=== PATIENT | male | born 1965 | race Caucasian/White ===

== ENCOUNTER 2020-12-21 12:55 | Observation (INO) | payer BC ==
[2020-12-21] MEDS ORDERED: Sodium Chloride 0.9% 1000 ML 1,000 ML IV STA (13:23)
[2020-12-21] MEDS ORDERED: Sodium Chloride 0.9% 1000 ML 1,000 ML ONE (13:47)
--- NOTE | 2020-12-21 14:12 | ERPHSYRPT ---
- History of Present Illness Time Seen by Provider: 12/21/20 14:09 Source: family, EMS Exam Limitations: no limitations Patient Subjective Stated Complaint: EMS states "His girlfriend found him with a bunch of pill bottles, but he cannot remember what he took or how much. He knows his name but that is about it.". pt states "I don't know what is going on. I do not know what I took , I do not know where I am." Triage Nursing Assessment: Pt presented alert and confused. Pt knows his name but not where he is. PT can answer some questions but not other. Pt gets irritated when asked multiple questions. PT has intermittant cough. Physician History: EMS states "His girlfriend found him with a bunch of pill bottles, but he cannot remember what he took or how much. He knows his name but that is about it." pt states "I don't know what is going on. I do not know what I took , I do not know where I am."Patient is extremely drowsy and unable to answer the question Timing/Duration: today Allergies/Adverse Reactions: Penicillins Allergy (Unknown, Verified 12/21/20 13:08) tetracycline Allergy (Unknown, Verified 12/21/20 13:08) Home Medications: Lisinopril 40 mg PO DAILY 12/21/20 [History] Metoprolol Tartrate 25 mg PO BID 12/21/20 [History] Rosuvastatin Calcium [Crestor] 5 mg PO DAILY 12/21/20 [History] Trazodone HCl 100 mg PO DAILY 12/21/20 [History] Hx Tetanus, Diphtheria Vaccination/Date Given: (unknown) Hx Influenza Vaccination/Date Given: (unknown) Hx Pneumococcal Vaccination/Date Given: (unknown) Immunizations Up to Date: (unknown) Travel Risk - International Travel Have you traveled outside of the country in past 3 weeks: No - Coronavirus Screening Are you exhibiting any of the following symptoms?: No Close contact with a COVID-19 positive Pt in past 14-21 Days: No - Vaccine Status Have you recieved a Covid-19 vaccination: Yes Evidence Custodian: Amind - Review of Systems Constitutional: Lethargy Neurological: Lethargy All Other Systems: Unable due to condition - Past Medical History Pertinent Past Medical History: Yes Neurological History: No Pertinent History ENT History: No Pertinent History Cardiac History: High Cholesterol, Hypertension Respiratory History: No Pertinent History Endocrine Medical History: No Pertinent History Musculoskeletal History: No Pertinent History GI Medical History: No Pertinent History History: No Pertinent History Psycho-Social History: Depression Male Reproductive Disorders: No Pertinent History - Past Surgical History Past Surgical History: Yes Other Surgical History: hernia. appi. benigno - Social History Smoking Status: Former smoker Exposure to second hand smoke: Yes Drug Use: none Patient Lives Alone: No - Nursing Vital Signs Nursing Vital Signs: Initial Vital Signs Temperature 97.4 F 12/21/20 12:57 Pulse Rate 87 12/21/20 12:57 Respiratory Rate 20 12/21/20 12:57 Blood Pressure 150/95 12/21/20 12:57 O2 Sat by Pulse Oximetry 96 12/21/20 12:57 Pain Scale Pain Intensity 0 - Physical Exam General Appearance: mild distress Eye Exam: PERRL/EOMI Ears, Nose, Throat Exam: normal ENT inspection Neck Exam: normal inspection Respiratory Exam: normal breath sounds Cardiovascular Exam: regular rate/rhythm Gastrointestinal/Abdomen Exam: soft, normal bowel sounds Back Exam: normal inspection Extremity Exam: normal inspection Neurologic Exam: sensation nml, disoriented, No motor deficits, No intoxicated appearance, No motor weakness, No facial droop SpO2: 96 - Course Nursing assessment & vital signs reviewed: Yes EKG Interpreted by Me: Sinus Rhythm, Non-specific ST Changes Rhythm Strip: Normal Sinus Rhythm - Radiology Exams Chest X-ray Interpretation: Reviewed by me, Negative - CT Exams Head CT Interpretation: Tele-radiologist Report Ordered Tests: Active Orders 24 hr Category Date Time Status EKG-ER Only STAT Care 12/21/20 13:39 Active CHEST 2 VIEWS (PA AND LAT) Stat Exams 12/21/20 14:51 Ordered HEAD WITHOUT CONTRAST [CT] Stat Exams 12/21/20 13:24 Taken ACETAMINOPHEN Stat Lab 12/21/20 13:45 Completed CBC W DIFF Stat Lab 12/21/20 13:45 Completed CMP Stat Lab 12/21/20 13:45 Completed ETHYL ALCOHOL Stat Lab 12/21/20 13:45 Completed SALICYLATE Stat Lab 12/21/20 13:45 Completed TROPONIN Stat Lab 12/21/20 14:12 Completed Urine Triage Profile Stat Lab 12/21/20 14:16 Ordered Medication Summary Discontinued Medications Generic Name Dose Route Start Last Admin Trade Name Freq PRN Reason Stop Dose Admin Sodium Chloride 1,000 mls @ 999 mls/hr 12/21/20 13:23 12/21/20 13:48 Sodium Chloride 0.9% 1000 Ml IV 12/21/20 14:23 999 mls/hr .Q1H1M STA Administration Sodium Chloride Confirm 12/21/20 13:47 Sodium Chloride 0.9% 1000 Ml Administered 12/21/20 13:48 Dose 1,000 mls @ ud .ROUTE .K-MED ONE Lab/Rad Data: Laboratory Result Diagrams 12/21/20 13:45 12/21/20 13:45 Laboratory Results 12/21/20 12/21/20 12/21/20 Range/Units 14:12 13:45 13:45 WBC 9.1 (4.0-10.5) K/mm3 RBC 5.26 (4.1-5.6) M/mm3 Hgb 15.5 (12.5-18.0) gm/dl Hct 47.5 (42-50) % MCV 90.3 (78-100) fl MCH 29.5 (26-32) pg MCHC 32.6 (32-36) g/dl RDW 15.0 H (11.5-14.0) % Plt Count 81 L (150-450) K/mm3 MPV 9.9 (7.5-11.0) fl Gran % 77.7 H (36.0-66.0) % Eos # (Auto) 0.11 (0-0.5) Absolute Lymphs (auto) 1.14 (1.0-4.6) Absolute Monos (auto) 0.73 (0.0-1.3) Lymphocytes % 12.5 L (24.0-44.0) % Monocytes % 8.0 (0.0-12.0) % Eosinophils % 1.2 (0.00-5.0) % Basophils % 0.6 (0.0-0.4) % Absolute Granulocytes 7.06 H (1.4-6.9) Basophils # 0.05 (0-0.4) Sodium 141 (137-145) mmol/L Potassium 4.6 (3.5-5.1) mmol/L Chloride 105 (98-107) mmol/L Carbon Dioxide 29 (22-30) mmol/L Anion Gap 12.4 (5-15) MEQ/L BUN 10 (9-20) mg/dL Creatinine 1.00 (0.66-1.25) mg/dL Estimated GFR > 60.0 ML/MIN Glucose 104 (74-106) mg/dL Calcium 9.6 (8.4-10.2) mg/dL Total Bilirubin 0.80 (0.2-1.3) mg/dL AST 25 (17-59) U/L ALT 17 (0-50) U/L Alkaline Phosphatase 124 (38-126) U/L Troponin I 0.067 H* (0.000-0.034) ng/mL Serum Total Protein 7.2 (6.3-8.2) g/dL Albumin 4.4 (3.5-5.0) g/dL Salicylates < 1.0 L (2-20) mg/dL Acetaminophen < 10 L (10-30) ug/ml Ethyl Alcohol < 10 (0-10) mg/dL Slides for Path Review YES - Progress Progress: unchanged Discussed with Dr.: Ira Marc Will see patient in: hospital (observation) Counseled pt/family regarding: lab results, diagnosis, need for follow-up, rad results - Departure Departure Disposition: Observation Clinical Impression: Elevated troponin I level, Unresponsive episode Condition: Fair Critical Care Time: Yes Critical Care Time(excluding separately billable procedures): Critical 30-74 min s Referrals: DOCTOR,NO FAMILY [Primary Care Provider] -
[2020-12-21 14:13] LABS: Absolute Neutrophil Ct (ANC) 7.06 (1.4-6.9); BASOPHIL % 0.6 % (0.0-0.4); Basophil (Absolute #) 0.05 (0-0.4); Eosinophil % 1.2 % (0.00-5.0); Eosinophil (Absolute #) 0.11 (0-0.5); Hematocrit 47.5 % (42-50); Hemoglobin 15.5 gm/dl (12.5-18.0); Lymphocyte (Absolute #) 1.14 (1.0-4.6); Lymphocytes % 12.5 % (24.0-44.0); Mean Cell Volume 90.3 fl (78-100); Mean Corpuscular Hemoglobin 29.5 pg (26-32); Mean Corpuscular Hgb Concent. 32.6 g/dl (32-36); Mean Platelet Volume 9.9 fl (7.5-11.0); Monocyte (Absolute #) 0.73 (0.0-1.3); Neutrophil % 77.7 % (36.0-66.0); Platelet Count 81 K/mm3 (150-450); Red Blood Count 5.26 M/mm3 (4.1-5.6); White Blood Count 9.1 K/mm3 (4.0-10.5)
[2020-12-21 14:24] LABS: ACETAMINOPHEN < 10 ug/ml (10-30); ALBUMIN 4.4 g/dL (3.5-5.0); ALKALINE PHOSPHATASE 124 U/L (38-126); ANION GAP 12.4 MEQ/L (5-15); BLOOD UREA NITROGEN 10 mg/dL (9-20); CHLORIDE 105 mmol/L (98-107); Calcium 9.6 mg/dL (8.4-10.2); Carbon Dioxide 29 mmol/L (22-30); EST GLOMERULAR FILTRATION RATE > 60.0 ML/MIN; ETHYL ALCOHOL < 10 mg/dL (0-10); Glucose 104 mg/dL (74-106); Potassium 4.6 mmol/L (3.5-5.1); SALICYLATE < 1.0 mg/dL (2-20); SGOT/AST 25 U/L (17-59); SGPT/ALT 17 U/L (0-50); SODIUM 141 mmol/L (137-145); Total Protein 7.2 g/dL (6.3-8.2)
[2020-12-21 14:45] LABS: Slide Review 1 YES
[2020-12-21 15:18] LABS: Amphetamine,Urine NEGATIVE (NEGATIVE); Barbiturate,Urine NEGATIVE (NEGATIVE); Benzodiazepine,Urine NEGATIVE (NEGATIVE); Cocaine,Urine NEGATIVE (NEGATIVE); Methadone,Urine NEGATIVE (NEGATIVE); Opiate,Urine NEGATIVE (NEGATIVE); PCP,Urine NEGATIVE (NEGATIVE); THC,Urine NEGATIVE (NEGATIVE)
[2020-12-21] MEDS ORDERED: Senokot-S Tablet PO PRN (17:35)
[2020-12-21] MEDS ORDERED: TYLENOL 325 MG PO PRN (17:35)
[2020-12-21] MEDS ORDERED: MILK OF MAGNESIA 30 ML PO PRN (17:35)
[2020-12-21] MEDS ORDERED: MAALOX ES 30 ML UNIT DOSE PO PRN (17:35)
[2020-12-21] MEDS ORDERED: Zofran 4 MG/2 ML VIAL IV PRN (17:35)
[2020-12-21] MEDS ORDERED: Sodium Chloride 0.9% 500 ML 500 ML IV SCH (17:45)
--- NOTE | 2020-12-21 20:32 | XRAY ---
Indication: Found unresponsive. Comparison: None AP/lateral chest inflated and clear. Heart not enlarged with CABG surgery. Bony thorax intact with sternotomy wires. Impression: Nonacute chest.
--- NOTE | 2020-12-21 20:34 | XRAY ---
Indication: Found unresponsive. Multiple contiguous axial images obtained through the head without contrast. Comparison: None Normal appearing brain parenchyma, ventricles, and bony calvarium for patient's age. Complete opacification right maxillary and right sphenoid sinuses with minimal mucosal thickening of both ethmoid sinuses. Mastoid air cells are clear. Impression: Pansinusitis. Remaining CT head without contrast exam is negative. Comment: Preliminary interpretation made by [facility]. No critical discrepancy.
[2020-12-22] MEDS ORDERED: ENOXAPARIN SODIUM SQ ONE
[2020-12-22] MEDS ORDERED: Toprol Xl 50 MG PO ONE
[2020-12-22 06:35] LABS: BASOPHIL % 0.5 % (0.0-0.4); Basophil (Absolute #) 0.03 (0-0.4); Eosinophil % 3.2 % (0.00-5.0); Hematocrit 44.1 % (42-50); Hemoglobin 14.4 gm/dl (12.5-18.0); Lymphocyte (Absolute #) 1.49 (1.0-4.6); Lymphocytes % 23.9 % (24.0-44.0); Mean Cell Volume 90.4 fl (78-100); Mean Corpuscular Hemoglobin 29.5 pg (26-32); Mean Corpuscular Hgb Concent. 32.7 g/dl (32-36); Monocyte (Absolute #) 0.61 (0.0-1.3); Monocytes % 9.8 % (0.0-12.0); Neutrophil % 62.6 % (36.0-66.0); Platelet Count 75 K/mm3 (150-450); Red Blood Count 4.88 M/mm3 (4.1-5.6); White Blood Count 6.2 K/mm3 (4.0-10.5)
[2020-12-22 07:03] LABS: ANION GAP 9.7 MEQ/L (5-15); BLOOD UREA NITROGEN 11 mg/dL (9-20); CHLORIDE 108 mmol/L (98-107); Calcium 8.8 mg/dL (8.4-10.2); Carbon Dioxide 24 mmol/L (22-30); Cholesterol 186 mg/dL (50-200); Creatinine 1 0.83 mg/dL (0.66-1.25); EST GLOMERULAR FILTRATION RATE > 60.0 ML/MIN; Glucose 95 mg/dL (74-106); HDL CHOLESTEROL 30 mg/dL (40-60); LDL, DIRECT 120 mg/dL (30-100); Potassium 3.9 mmol/L (3.5-5.1); Risk Ratio 6.1; SODIUM 138 mmol/L (137-145); TRIGLYCERIDE 240 mg/dL (30-150)
[2020-12-22 07:28] LABS: Slide Review 1 YES
[2020-12-22 08:40] VITALS: O2SAT 97
[2020-12-22 13:52] VITALS: BP 142/72; PULSE 68
--- NOTE | 2020-12-22 17:49 | XRAY ---
Indication: Stroke symptoms. Multiple contiguous axial images obtained through the head without contrast. Comparison: One day earlier. Normal appearing brain parenchyma, ventricles, and bony calvarium for patient's age. Continued complete opacification right maxillary and right sphenoid sinuses with mild mucosal thickening both ethmoid sinuses. Mastoid air cells remain clear. Impression: 1. Continued negative CT head without contrast exam. 2. Again incidental pansinusitis. 3. MRI may yield further information if there remains clinical concern. Comment: Preliminary interpretation made by [facility]. No critical discrepancy
--- NOTE | 2020-12-22 17:56 | XRAY ---
Indication: Stroke symptoms. Conventional contrast enhanced CTA neck performed using 100 cc Isovue 370 contrast. Two-dimensional sagittal and coronal reformatted images obtained. Additional 3-dimensional reformatted images obtained using a separate workstation. Comparison: None. Aortic arch demonstrates minimal arteriosclerotic calcifications without aneurysm/dissection. Normal branching right brachiocephalic, left common carotid, and left subclavian arteries with very minimal calcifications at their origins. Examination of the right carotid circulation demonstrates widely patent common carotid artery. At the level of the bulb, there is very minimal arteriosclerotic calcifications slightly extending into the origin of the internal carotid artery without critical stenosis/obstruction. Remaining external carotid and distal internal carotid arteries are normal in CTA appearance. Examination of the left carotid circulation demonstrates widely patent common carotid artery. Very minimal arteriosclerotic calcifications seen at the level of the bulb slightly extending into the origin of the internal carotid artery without critical stenosis/obstruction. Remaining external carotid artery normal in CTA appearance. Vertebral arteries are bilaterally normal in CTA appearance with the left slightly larger in caliber. Visualized noncontrasted soft tissues demonstrates a few subcentimeter cervical and submandibular lymph nodes bilaterally. No pathologic lymphadenopathy. Parotid and submandibular glands are bilaterally symmetric. Supra and infraglottic airway widely patent. Patient is edentulous. Cervical spine intact with minimal/mild C6-T1 degenerative changes. Lung apices are clear. CTA head reported separately. Impression: 1. Minimal arteriosclerotic calcifications in both carotid bulbs and origin both internal carotid arteries. 2. Remaining CTA neck is negative. 3. Incidental C6-T1 degenerative changes. Comment: Preliminary interpretation made by [facility]. No critical discrepancy.
--- NOTE | 2020-12-22 18:00 | XRAY ---
Indication: Stroke symptoms. Conventional contrast enhanced CTA head performed using 100 cc Isovue 370 contrast. Two-dimensional sagittal and coronal reformatted images obtained. Additional 3-dimensional reformatted images obtained using a separate workstation. Comparison: None. CTA neck reported separately. Distal internal carotid arteries are bilaterally symmetric with minimal scattered calcifications parasellar segments without critical stenosis/obstruction. Normal carotid terminus with normal branching A1 and M1 segments bilaterally. More distal anterior cerebral, middle cerebral, anterior communicating, and posterior commuting arteries are normal in CTA appearance. Posterior circulation demonstrates normal CTA appearance of the basilar artery, left/right posterior cerebral, and left/right superior cerebellar arteries. Venous system unremarkable. No abnormal enhancing intra or extra-axial mass. Impression: 1. Minimal arteriosclerotic calcifications in both parasellar internal carotid arteries without critical stenosis/obstruction. 2. Remaining CTA head is negative. Comment: Preliminary interpretation made by [facility]. No critical discrepancy.
--- NOTE | 2020-12-22 22:39 | PCM.SSS ---
History of Present Illness - Chief Complaint Chief Complaint: Altered mental status Date: 12/22/20 History of Present Illness: is a 55 year old male. Was brought to ER after Girlfriend noted she had talked to him wednesday about 1800, she did not hear from him later that night but noted she usually hears from him every night, but thought he had fallen asleep. She noted she spent the morning watching her grandchildrens sports and noted had not heard from him and went to check on him afterwards. She noted he had left his phone in basement where he had done some laundry, the patient notes he had fallen a few times and hit his head while in basement doing laundry which was unusual. Pt. at presentation to ER was minimally responsive and worked up with no acute findings placed into hospital for further observation and possible further evaluation. - Review of Systems Constitutional: Lethargy, No Fever, No Chills Eyes: No Symptoms Ears, Nose, & Throat: No Symptoms Respiratory: No Cough, No Short Of Breath Cardiac: No Chest Pain, No Edema, No Syncope Abdominal/Gastrointestinal: No Abdominal Pain, No Nausea, No Vomiting, No Diarrhea Genitourinary Symptoms: No Dysuria Musculoskeletal: No Back Pain, No Neck Pain Skin: No Rash Neurological: No Dizziness, No Focal Weakness, No Sensory Changes Psychological: No Symptoms Endocrine: No Symptoms Hematologic/Lymphatic: No Symptoms Immunological/Allergic: No Symptoms Medications & Allergies Home Medications: Home Medication List Lisinopril 40 mg PO DAILY 12/21/20 [History Confirmed 12/21/20] Metoprolol Tartrate 25 mg PO BID 12/21/20 [History Confirmed 12/21/20] Rosuvastatin Calcium [Crestor] 5 mg PO DAILY 12/21/20 [History Confirmed 12/21/20] Trazodone HCl 100 mg PO HS 12/21/20 [History Confirmed 12/22/20] Aspirin EC 325 mg [Ecotrin 325 MG] 325 mg PO DAILY 12/22/20 [History Confirmed 12/22/20] Allergies/Adverse Reactions: Allergies Allergy/AdvReac Type Severity Reaction Status Date / Time Penicillins Allergy Unknown Verified 12/21/20 13:08 tetracycline Allergy Unknown Verified 12/21/20 13:08 - Past Medical History Past Medical History: Yes Neurological History: No Pertinent History ENT History: No Pertinent History Cardiac History: Hypertension, Other Respiratory History: No Pertinent History Endocrine Medical History: No Pertinent History Musculoskelatal History: No Pertinent History GI Medical History: No Pertinent History History: No Pertinent History Pyscho-Social History: Other Male Reproductive Disorders: No Pertinent History Comment: Girlfriend states, he seems depressed at times after losing his . - Past Surgical History Past Surgical History: Yes Neuro Surgical History: No Pertinent History Cardiac History: Valve Replacement Respiratory Surgery: No Pertinent History GI Surgical History: No Pertinent History Genitourinary Surgical Hx: No Pertinent History Musculskeletal Surgical Hx: No Pertinent History Male Surgical History: No Pertinent History Other Surgical History: hernia. appi. benigno - Social History Smoking Status: Current every day smoker How long have you smoked: unknown Exposure to second hand smoke: Yes Alcohol: Rarely Drug Use: none - Physical Exam Vital Signs: Vital Signs - 24 hr Temp Pulse Resp BP Pulse Ox 12/22/20 14:04 97 12/22/20 12:00 98.6 F 68 17 142/72 97 12/22/20 08:00 98.6 F 70 18 134/78 97 12/22/20 04:00 98.6 F 79 20 138/83 95 12/22/20 00:00 96.6 F 90 24 108/65 96 General Appearance: no apparent distress Neurologic Exam: alert, cooperative (Pt. noted to have CN 3 partial paralysis , 4.5/5 strength of the left upper extremity but patient notes an injry to left upper extrimity, also noted some left assymetry of the left face which the patient and gf note as his normal face. Pt. with some speech changes but related to false teeth sliding) Eye Exam: other (as previiously noted CN III palsy partially, fixed dilated pupil inability to move eye medially, but not fixed into the position of out and down.) Ears, Nose, Throat Exam: normal ENT inspection, TMs normal, pharynx normal, mois t mucous membranes Neck Exam: normal inspection, non-tender, supple, full range of motion, No meningismus, No mass Respiratory Exam: normal breath sounds, lungs clear, No chest tenderness, No respiratory distress Cardiovascular Exam: regular rate/rhythm, normal heart sounds, normal peripheral pulses Gastrointestinal/Abdomen Exam: soft, normal bowel sounds, No tenderness, No mass Rectal Exam: deferred Back Exam: normal inspection Extremity Exam: normal inspection, normal range of motion, pelvis stable, No amputations, No lara, No contusions, No calf tenderness, No deformities, No paralysis, No tenderness Lymphatic Exam: No adenopathy Results - Labs Lab/Micro Results: Lab Results-Last 24 Hours 12/21/20 12/22/20 12/22/20 Range/Units 22:34 06:15 06:15 WBC 6.2 (4.0-10.5) K/mm3 RBC 4.88 (4.1-5.6) M/mm3 Hgb 14.4 (12.5-18.0) gm/dl Hct 44.1 (42-50) % MCV 90.4 (78-100) fl MCH 29.5 (26-32) pg MCHC 32.7 (32-36) g/dl RDW 15.0 H (11.5-14.0) % Plt Count 75 L (150-450) K/mm3 MPV 10.0 (7.5-11.0) fl Gran % 62.6 (36.0-66.0) % Eos # (Auto) 0.20 (0-0.5) Absolute Lymphs (auto) 1.49 (1.0-4.6) Absolute Monos (auto) 0.61 (0.0-1.3) Lymphocytes % 23.9 L (24.0-44.0) % Monocytes % 9.8 (0.0-12.0) % Eosinophils % 3.2 (0.00-5.0) % Basophils % 0.5 (0.0-0.4) % Absolute Granulocytes 3.90 (1.4-6.9) Basophils # 0.03 (0-0.4) Sodium 138 (137-145) mmol/L Potassium 3.9 (3.5-5.1) mmol/L Chloride 108 H (98-107) mmol/L Carbon Dioxide 24 (22-30) mmol/L Anion Gap 9.7 (5-15) MEQ/L BUN 11 (9-20) mg/dL Creatinine 0.83 (0.66-1.25) mg/dL Estimated GFR > 60.0 ML/MIN Glucose 95 (74-106) mg/dL Calcium 8.8 (8.4-10.2) mg/dL Troponin I 0.068 H* (0.000-0.034) ng/mL Triglycerides 240 H (30-150) mg/dL Cholesterol 186 (50-200) mg/dL LDL Cholesterol 120 H (30-100) mg/dL HDL Cholesterol 30 L (40-60) mg/dL Heart Disease Risk Ratio 6.1 Slides for Path Review YES - Radiology Impressions Radiology Exams & Impressions: Radiology Procedures Category Date Time Status CHEST 2 VIEWS (PA AND LAT) Stat Exams 12/21/20 14:[address] ANGIOGRAPHY NECK [CT] Stat Exams 12/22/20 11:49 Completed CTA HEAD W AND/OR WO CONTRAST [CT] Stat Exams 12/22/20 11:49 Completed HEAD WITHOUT CONTRAST [CT] Stat Exams 12/21/20 13:24 Completed HEAD WITHOUT CONTRAST [CT] Stat Exams 12/22/20 11:49 Completed - Other Procedures and Tests Respiratory Therapy 12/23/20 05:00 EKG DAILY 12/24/20 05:00 EKG DAILY Assessment/Plan (1) Altered mental state Status: Acute Code(s): R41.82 - ALTERED MENTAL STATUS, UNSPECIFIED (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 is in need of MRI of brain and brain stem with iv contrast but this is unavailable over the weekend. Neurology has been consulted and given last normal time known is over 36 hours ago, no acute treatments can be offered, this evaluation can be done over time, the gf would like the patient transferred to higher level of care for more rapid assessment of situation. This wish will be respected and patient will be transferred to [facility] for continued care and assessment. Code(s): H49.00 - THIRD [OCULOMOTOR] NERVE PALSY, UNSPECIFIED EYE (3) Neurologic abnormality Status: Acute Code(s): R29.818 - OTHER SYMPTOMS AND SIGNS INVOLVING THE NERVOUS SYSTEM (4) Unresponsive episode Status: Acute Hospital Summary - Hospital Course Hospital Course: Pt. admitted further diagnosis were assessed on the floor, further evaluation ordered and request for more rapid assessment respected and patient transferred for further evaluation. - Vitals & Intake/Output Vital Signs: Vital Signs Temperature 98.6 F 12/22/20 12:00 Pulse Rate 68 12/22/20 12:00 Respiratory Rate 17 12/22/20 12:00 Blood Pressure 142/72 12/22/20 12:00 O2 Sat by Pulse Oximetry 97 12/22/20 14:04 Intake & Output: Intake & Output 12/20/20 12/21/20 12/22/20 12/23/20 11:59 11:59 11:59 11:59 Intake Total 1120 240 Output Total 1300 Balance -180 240 Weight 82.4 kg - Lab Result Diagrams: 12/22/20 06:15 12/22/20 06:15 Lab Results-Last 24 Hrs: Lab Results-Last 24 Hours 12/21/20 12/22/20 12/22/20 Range/Units 22:34 06:15 06:15 WBC 6.2 (4.0-10.5) K/mm3 RBC 4.88 (4.1-5.6) M/mm3 Hgb 14.4 (12.5-18.0) gm/dl Hct 44.1 (42-50) % MCV 90.4 (78-100) fl MCH 29.5 (26-32) pg MCHC 32.7 (32-36) g/dl RDW 15.0 H (11.5-14.0) % Plt Count 75 L (150-450) K/mm3 MPV 10.0 (7.5-11.0) fl Gran % 62.6 (36.0-66.0) % Eos # (Auto) 0.20 (0-0.5) Absolute Lymphs (auto) 1.49 (1.0-4.6) Absolute Monos (auto) 0.61 (0.0-1.3) Lymphocytes % 23.9 L (24.0-44.0) % Monocytes % 9.8 (0.0-12.0) % Eosinophils % 3.2 (0.00-5.0) % Basophils % 0.5 (0.0-0.4) % Absolute Granulocytes 3.90 (1.4-6.9) Basophils # 0.03 (0-0.4) Sodium 138 (137-145) mmol/L Potassium 3.9 (3.5-5.1) mmol/L Chloride 108 H (98-107) mmol/L Carbon Dioxide 24 (22-30) mmol/L Anion Gap 9.7 (5-15) MEQ/L BUN 11 (9-20) mg/dL Creatinine 0.83 (0.66-1.25) mg/dL Estimated GFR > 60.0 ML/MIN Glucose 95 (74-106) mg/dL Calcium 8.8 (8.4-10.2) mg/dL Troponin I 0.068 H* (0.000-0.034) ng/mL Triglycerides 240 H (30-150) mg/dL Cholesterol 186 (50-200) mg/dL LDL Cholesterol 120 H (30-100) mg/dL HDL Cholesterol 30 L (40-60) mg/dL Heart Disease Risk Ratio 6.1 Slides for Path Review YES - Radiology Exams Ordered Rad Exams-Entire Visit: Radiology Procedures Category Date Time Status CHEST 2 VIEWS (PA AND LAT) Stat Exams 12/21/20 14:[address] ANGIOGRAPHY NECK [CT] Stat Exams 12/22/20 11:49 Completed CTA HEAD W AND/OR WO CONTRAST [CT] Stat Exams 12/22/20 11:49 Completed HEAD WITHOUT CONTRAST [CT] Stat Exams 12/21/20 13:24 Completed HEAD WITHOUT CONTRAST [CT] Stat Exams 12/22/20 11:49 Completed - Procedures and Test Procedures and Tests throughout Hospitalization: Therapy Orders & Screens 12/21/20 17:35 EKG Q8HX2,QAMX3,PRN Comment: Oxygen Nasal Cannula 2 lpm Comment: 12/21/20 21:00 EKG ROUTINE Comment: Diagnosis: Drug overdose 12/22/20 05:00 EKG DAILY Comment: Diagnosis: Drug overdose 12/23/20 05:00 EKG DAILY Comment: Diagnosis: Drug overdose 12/24/20 05:00 EKG DAILY Comment: Diagnosis: Drug overdose - Discharge Discharge Date: 12/22/20 Disposition: DC TO [facility] Condition: Stable Prescriptions: No Action Lisinopril 40 mg PO DAILY Rosuvastatin Calcium [Crestor] 5 mg PO DAILY Metoprolol Tartrate 25 mg PO BID Trazodone HCl 100 mg PO HS Aspirin EC 325 mg [Ecotrin 325 MG] 325 mg PO DAILY Forms: Ambulance Transport Record, Patient Portal Information, Transfer Record Inter-Agency
== END 2020-12-22 16:19 | disposition home or self-care (01) ==
LOC: ED 12:55 → MED SURG 17:45
PROVIDERS: ADMIT Family Medicine; ATTEND Family Medicine
DX: R41.82 Altered mental status, unspecified (principal); H49.00 Third [oculomotor] nerve palsy, unspecified eye; I10 Essential (primary) hypertension; R29.818 Other symptoms and signs involving the nervous system; Z79.899 Other long term (current) drug therapy; Z20.822 Contact with and (suspected) exposure to COVID-19
CPT/HCPCS: 36415; 70450; 70496; 70498; 71046; 80048; 80053; 80061; 80307; 83721; 84484; 85025; 93005; 93268; 94760; 96360; 99285; 99291; G0378; Q3014; U0003; J1650; A9270-GY; G0480